=== PATIENT | female | born 1970 | race Caucasian/White ===

== ENCOUNTER → 2016-04-30 | Outpatient (CLI) | payer OTHER | LOC: FIMAGING 15:17 | DX: Z12.31 Encounter for screening mammogram for malignant neoplasm of breast (principal) | CPT/HCPCS: G0202 ==

== ENCOUNTER 2016-05-31 12:09 | Emergency (ER) | payer OTHER ==
[2016-05-31 12:17] VITALS: PULSE 68; RESP 18; TEMP 97.5; O2SAT 98
[2016-05-31 12:20] VITALS: BP 95/62
--- NOTE | 2016-05-31 12:25 | EDPHY ---
H & P Stated Complaint: R ankle pain --misssed step--no other injuries Time Seen by Provider: 05/31/16 12:25 HPI/ROS: CHIEF COMPLAINT: right ankle pain HISTORY OF PRESENT ILLNESS: 45-year-old female arrives via private vehicle complaining of acute right ankle pain after she missed a step and rolled her foot this morning. Unable to bear weight. Complaining of pain to the midfoot and lateral ankle. PRIMARY CARE PROVIDER: REVIEW OF SYSTEMS: A ten point review of systems was performed and is negative with the exception of the items mentioned in the HPI PHYSICAL EXAM (Prior to examination, patient consented to physical exam, hands were washed and my usual and customary physical exam procedures followed) 1) GENERAL: Well-developed, well-nourished, alert and oriented. Appears to be in no acute distress. 2) HEAD: Normocephalic 3) HEENT: Pupils equal, round, reactive to light bilaterally. 4) LUNGS: Breathing comfortably. 5) MUSCULOSKELETAL: Tender to palpation dorsal midfoot and medial and lateral malleolus. Soft tissue swelling noted at midfoot. proximal tibia and fibula nontender .5th MT nontender negative Dominguez test, compartments soft 6) SKIN: intact 7) VASCULAR: DP,PT pulses and cap refill present and brisk DIFFERENTIAL DIAGNOSIS: in no particular order including but not limited to fracture, sprain, compartment syndrome Procedure: Crutches indications for crutch use discussed with patient. Patient fitted for crutches by ER staff. Observed ambulating with crutches. I think the patient has the capacity to safely use crutches. Usual and customary crutch walking precautions provided Procedure: Splint A [place] boot splint was applied by ER hemodialysis lab technician. After application of the splint I returned and re-examined the patient. The splint was adequately immobilizing the joint and distal to the splint the patient's circulation and sensation were intact. Patient shows no signs of compartment syndrome. Was given orthopedic precautions. - Personal History LMP (Females 10-55): 15-21 Days Ago Current Tetanus/Diphtheria Vaccine: Unsure Current Tetanus Diphtheria and Acellular Pertussis (TDAP): Unsure - Medical/Surgical History Hx Asthma: No Hx Chronic Respiratory Disease: No Hx Diabetes: No Hx Cardiac Disease: No Hx Renal Disease: No Hx Cirrhosis: No Hx Alcoholism: No Hx HIV/AIDS: No Hx Splenectomy or Spleen Trauma: No Other PMH: anxiety, T8 compression fx,Right shoulder, x2, neck-" fucked up", 2010- perforated esophagus with EGD in [facility], depression- Clau [place] - [facility] Depression [place]- last seen 2 weeks ago, states she was given meds for schizophrenia/ bipolar, seen for last 5 years. Tramadol "doubled up on it" taken bought in [place]. Menopausal with hot flashes - Social History Smoking Status: Current some day smoker Constitutional: Initial Vital Signs Temperature (C) 36.4 C 05/31/16 12:15 Heart Rate 68 05/31/16 12:15 Respiratory Rate 18 05/31/16 12:15 Blood Pressure 95/62 L 05/31/16 12:15 O2 Sat (%) 98 05/31/16 12:15 O2 Delivery Mode Room Air Allergies/Adverse Reactions: No Known Allergies Allergy (Verified 04/04/13 11:31) Home Medications: Medication Instructions Recorded LORazepam [Ativan (*)] 0.5 mg PO BID #14 tab 05/25/14 QUEtiapine FUMARATE [Seroquel 300 mg PO HS #30 tab 05/25/14 300mg (*)] hydrOXYzine HCL [Vistaril 50MG 50 mg PO Q4 PRN #30 tab 05/25/14 (RX)] oxyCODONE/APAP 5/325 [Percocet 1 tab PO Q6 #7 tab 05/31/16 5/325] Medical Decision Making - Diagnostics Imaging: Imaging Impressions Ankle X-Ray 05/31/16 12:20 Impression: Dorsal navicular and lateral calcaneal cortical fractures.. Images reviewed by myself - Data Points Medications Given: Discontinued Medications Oxycodone/Acetaminophen (Percocet 5/325) 1 tab PO EDNOW ONE Stop: 05/31/16 12:36 Last Admin: 05/31/16 12:40 Dose: Not Given Departure - Departure Disposition: Home, Routine, Self-Care Clinical Impression: Ankle fracture, right Qualifiers: Encounter type: initial encounter Fracture type: closed Qualified Code(s): S82.891A - Other fracture of right lower leg, initial encounter for closed fracture Condition: Good Instructions: Ankle Fracture (ED) Additional Instructions: Return to the ER immediately if you experience discoloration, have worsening pain, numbness, tingling, or any other symptoms that concern you. If you received x-rays in the emergency department today, be advised, that ligamentous , tendon, muscular, and other non-bony injury cannot be fully ruled out. Try to keep your affected extremity elevated above the level of your chest, and keep cold packs on the affected area, for the next 48 hours. Referrals: Tavo Murillo MD [Medical Doctor] - 2-3 days without fail (Dr. Tavo Murillo is an orthopedic surgeon) Prescriptions: oxyCODONE/APAP 5/325 [Percocet 5/325] 1 tab PO Q6 #7 tab
[2016-05-31] MEDS ORDERED: OXYCODONE/APAP 5/325 TAB PO ONE ×2 (12:32→12:35)
== END 2016-05-31 13:08 | disposition home or self-care (01) ==
DX: S82.891A Other fracture of right lower leg, initial encounter for closed fracture (principal); F17.200 Nicotine dependence, unspecified, uncomplicated; X58.XXXA Exposure to other specified factors, initial encounter
CPT/HCPCS: L4386

== ENCOUNTER 2016-12-17 22:28 | Emergency (ER) | payer SELFPAY ==
[2016-12-17 22:40] VITALS: TEMP 97.9
--- NOTE | 2016-12-17 22:55 | EDPHY ---
H & P Stated Complaint: ANXIETY/ DEPRESSION. STATES TOOK 60 PILLS OF XANAX. DENIES SI Source: Patient - Personal History LMP (Females 10-55): Over 28 Days Ago Current Tetanus/Diphtheria Vaccine: Unsure Current Tetanus Diphtheria and Acellular Pertussis (TDAP): Unsure - Medical/Surgical History Hx Asthma: No Hx Chronic Respiratory Disease: No Hx Diabetes: No Hx Cardiac Disease: No Hx Renal Disease: No Hx Cirrhosis: No Hx Alcoholism: No Hx HIV/AIDS: No Hx Splenectomy or Spleen Trauma: No Other PMH: anxiety, T8 compression fx,Right shoulder, x2, neck-" fucked up", 2010- perforated esophagus with EGD in [facility], depression- Cl[place] - [facility] Depression [place]- last seen 2 weeks ago, states she was given meds for schizophrenia/ bipolar, seen for last 5 years. Tramadol "doubled up on it" taken bought in [place]. Menopausal with hot flashes - Social History Smoking Status: Current some day smoker Time Seen by Provider: 12/17/16 22:53 HPI/ROS: HPI: This is a 46-year-old female who presents with Chief Complaint: ANXIETY/ DEPRESSION. STATES TOOK 60 PILLS OF XANAX. DENIES SI Location: Body Quality: Xanax ingestion Duration: 2100 Signs and Symptoms: No shortness of breath, no chest pain, no apnea, + slurred speech, + ataxia Timing: Rapid onset Severity: Moderate Context: Patient presents today accompanied by her close friend that she called her around 900 p.m. in told her that she took 60 pills of Xanax as she had terrible foot pain and could not take it any more. Patient has a history of anxiety and has a prescription for Xanax 1 mg tablets, last filled on 2016, dispense number 60. Patient has no pills left in her prescription bottle. Upon arrival she told the triage nurse she took 60 pills, she then told the RN she took 20 pills and she told me that she only took 4 pills. She went to dinner this evening with her friends after work, behaving appropriately and normally, had 1-2 vodka sodas. Patient has strong support system with 2 daughters. History of depression/anxiety. She denies suicidal ideation/ homicidal ideation/hallucinations/paranoia. 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 Patient keeps complaining about her right foot pain. History of injury several months ago. Denies any new recent injury. Patient keeps stating that she took her Xanax pills because her foot hurts so bad she did not want to kill herself. Modifying Factors: None Comment: ROS: Limited due to intoxication Constitutional: No fever, no chills, no weight loss Eyes: No blurred vision Respiratory: No shortness of breath, no cough Cardiovascular: No chest pain Gastrointestinal: No nausea, no vomiting, no diarrhea Genitourinary: No dysuria Extremities: No myalgias Neurologic: No weakness, no numbness Skin: No rashes Hematologic: No bruising, no bleeding MEDICAL/SURGICAL/SOCIAL HISTORY: Medical/Surgical history: anxiety, T8 compression fx,Right shoulder, x2, neck-"fucked up", 2010- perforated esophagus with EGD in [facility], depression- [place]- [facility] Depression [place]- last seen 2 weeks ago, states she was given medications for schizophrenia/ bipolar, seen for last 5 years. Tramadol "doubled up on it" taken bought in [place]. Menopausal with hot flashes. Social history: Employed CONSTITUTIONAL: Intoxicated middle-aged white female, interactive and talkative , awake and alert, no obvious distress HEENT: Atraumatic and normocephalic, PERRL, EOMI. Tympanic membranes clear. Oropharynx clear, no exudate and moist pink mucosa. Airway patent. No lymphadenopathy. No meningismus. Cardiovascular: Normal S1/S2, regular rate, regular rhythm, without murmur rub or gallop. PULMONARY/CHEST: Symmetrical and nontender. Clear to auscultation bilaterally. Good air movement. No accessory muscle usage. ABDOMEN: Soft, nondistended, nontender, no rebound, no guarding, no peritoneal signs, no masses or organomegaly. No CVAT. EXTREMITIES: 2/2 pulses, no deformities, no clubbing, no cyanosis or edema. NEUROLOGICAL: no focal neuro deficits. GCS 15. Slurring words. Fine motor deficits noted. PSYCH: Good eye contact, no flight of ideas, organized thought process, good insight and judgment, no auditory and visual command hallucinations, no suicidal ideation with a plan, no homicidal ideation, no paranoia SKIN: Warm and dry, no erythema. no rash. Good capillary refill. (Chandler,Terra) Constitutional: Initial Vital Signs Temperature (C) 36.6 C 12/17/16 22:34 Heart Rate 98 12/17/16 22:34 Respiratory Rate 18 12/17/16 22:34 Blood Pressure 101/69 12/17/16 22:34 O2 Sat (%) 96 12/17/16 22:34 O2 Delivery Mode Room Air Allergies/Adverse Reactions: No Known Allergies Allergy (Verified 04/04/13 11:31) Home Medications: Medication Instructions Recorded LORazepam [Ativan (*)] 0.5 mg PO BID #14 tab 05/25/14 QUEtiapine FUMARATE [Seroquel 300 mg PO HS #30 tab 05/25/14 300mg (*)] hydrOXYzine HCL [Vistaril 50MG 50 mg PO Q4 PRN #30 tab 05/25/14 (RX)] oxyCODONE/APAP 5/325 [Percocet 1 tab PO Q6 #7 tab 05/31/16 5/325] Medical Decision Making - Diagnostics Imaging Results: Imaging Impressions Foot X-Ray 12/17/16 23:27 Impression: 1. Normal right foot series. ED Course/Re-evaluation: Labs, UDS, cardiac monitoring Ingestion occurred around 9:00 p.m. placed on detainer 2300. At this point due to intoxication and patient not being forthcoming with information, will closely monitor and obtain medical clearance. Once alcohol and Xanax effects have wore off, will re-evaluate to determine if patient is suicidal. Right foot x-ray my read shows no acute fracture/dislocation. Placed in walking boot for comfort until seen by Orthopedics for further evaluation. 0012: Reassessed patient, she is still inconsistent in her story. She at 1 point showed time she took 60 mg of Xanax and another point she will tell me 10 or 4 tablets. I agree with the detainer and re-evaluation in several hours once sober to determine if she is truly suicidal. 0015: End of shift. Signed out to Dr. Diallo pending re-evaluation. (Gauri Terrazas) Differential Diagnosis: Altered mental status including but not limited to hypoglycemia, infectious process, electrolyte abnormality, head injury and intoxicants. (Gauri Terrazas) Other Provider: 0005 care assumed by me from ROMMEL guzman pending improve mental status and mental health evaluation. (Gary Diallo) Patient signed out to me at 0700. At 0800, patient has been evaluated by mental health who recommend discharge with resources given to rehab facility. ( Lai Jensen) - Data Points Laboratory Results: Laboratory Results 12/17/16 23:15 12/17/16 23:15 12/17/16 12/17/16 12/17/16 23:15 23:15 23:15 WBC RBC Hgb Hct MCV MCH MCHC RDW Plt Count MPV Neut % (Auto) Lymph % (Auto) Pender % (Auto) Eos % (Auto) Baso % (Auto) Nucleat RBC Rel Count Absolute Neuts (auto) Absolute Lymphs (auto) Absolute Monos (auto) Absolute Eos (auto) Absolute Basos (auto) Absolute Nucleated RBC Immature Gran % Immature Gran # Sodium 145 mEq/L H mEq/L (134-144) Potassium 4.2 mEq/L mEq/L (3.5-5.2) Chloride 105 mEq/L mEq/L (97-110) Carbon Dioxide 27 mEq/l mEq/l (22-31) Anion Gap 13 mEq/L mEq/L (8-16) BUN 10 mg/dL mg/dL (7-23) Creatinine 0.8 mg/dL mg/dL (0.6-1.0) Estimated GFR > 60 Glucose 87 mg/dL mg/dL (70-100) Calcium 9.6 mg/dL mg/dL (8.5-10.4) Beta HCG, Qual NEGATIVE Salicylates < 1.0 mg/dL L mg/dL (2.0-20.0) Urine Opiates Screen NEGATIVE (NEGATIVE) Acetaminophen < 10 mcg/mL L mcg/mL (10-30) Urine Barbiturates NEGATIVE (NEGATIVE) Ur Phencyclidine Scrn NEGATIVE (NEGATIVE) Ur Amphetamine Screen NEGATIVE (NEGATIVE) U Benzodiazepines Scrn NON-NEGATIVE H (NEGATIVE) Urine Cocaine Screen NEGATIVE (NEGATIVE) U Marijuana (THC) Screen NEGATIVE (NEGATIVE) Ethyl Alcohol 119 mg/dL H mg/dL (0-10) 12/17/16 23:15 WBC 5.94 10^3/uL 10^3/uL (3.80-9.50) RBC 4.25 10^6/uL 10^6/uL (4.18-5.33) Hgb 14.1 g/dL g/dL (12.6-16.3) Hct 40.6 % % (38.0-47.0) MCV 95.5 fL fL (81.5-99.8) MCH 33.2 pg pg (27.9-34.1) MCHC 34.7 g/dL g/dL (32.4-36.7) RDW 12.4 % % (11.5-15.2) Plt Count 225 10^3/uL 10^3/uL (150-400) MPV 10.3 fL fL (8.7-11.7) Neut % (Auto) 36.8 % L % (39.3-74.2) Lymph % (Auto) 48.3 % H % (15.0-45.0) Pender % (Auto) 7.7 % % (4.5-13.0) Eos % (Auto) 6.7 % % (0.6-7.6) Baso % (Auto) 0.3 % % (0.3-1.7) Nucleat RBC Rel Count 0.0 % % (0.0-0.2) Absolute Neuts (auto) 2.18 10^3/uL 10^3/uL (1.70-6.50) Absolute Lymphs (auto) 2.87 10^3/uL 10^3/uL (1.00-3.00) Absolute Monos (auto) 0.46 10^3/uL 10^3/uL (0.30-0.80) Absolute Eos (auto) 0.40 10^3/uL 10^3/uL (0.03-0.40) Absolute Basos (auto) 0.02 10^3/uL 10^3/uL (0.02-0.10) Absolute Nucleated RBC 0.00 10^3/uL 10^3/uL (0-0.01) Immature Gran % 0.2 % % (0.0-1.1) Immature Gran # 0.01 10^3/uL 10^3/uL (0.00-0.10) Sodium Potassium Chloride Carbon Dioxide Anion Gap BUN Creatinine Estimated GFR Glucose Calcium Beta HCG, Qual Salicylates Urine Opiates Screen Acetaminophen Urine Barbiturates Ur Phencyclidine Scrn Ur Amphetamine Screen U Benzodiazepines Scrn Urine Cocaine Screen U Marijuana (THC) Screen Ethyl Alcohol Departure - Departure Disposition: Home, Routine, Self-Care Clinical Impression: Benzodiazepine overdose of undetermined intent Qualifiers: Encounter type: initial encounter Qualified Code(s): T42.4X4A - Poisoning by benzodiazepines, undetermined, initial encounter Condition: Good Instructions: Benzodiazepine Abuse (ED) Additional Instructions: Return to the ED for thoughts of self-harm or other concerns. Please follow-up with rehabilitation facility. Referrals: NONE *PRIMARY CARE P,. [Primary Care Provider] - As per Instructions
[2016-12-17 23:26] LABS: % IMMATURE GRANULYOCYTES 0.2 % (0.0-1.1); ABSOLUTE IMMATURE GRANULOCYTES 0.01 10^3/uL (0.00-0.10); ADD DIFF? NO; ADD MORPH? NO; ADD SCAN? NO; ATYPICAL LYMPHOCYTE FLAG 10 (0-99); FRAGMENT RBC FLAG 0 (0-99); HEMATOCRIT 40.6 % (38.0-47.0); HEMOGLOBIN 14.1 g/dL (12.6-16.3); LEFT SHIFT FLG 0 (0-99); LIPEMIA HEMOLYSIS FLAG 90 (0-99); MEAN CELL HEMOGLOBIN 33.2 pg (27.9-34.1); MEAN CELL HEMOGLOBIN CONCENTR. 34.7 g/dL (32.4-36.7); MEAN CELL VOLUME 95.5 fL (81.5-99.8); MEAN PLATELET VOLUME 10.3 fL (8.7-11.7); PLATELET CLUMPS FLAG 10 (0-99); PLATELET COUNT 225 10^3/uL (150-400); RED BLOOD CELL COUNT 4.25 10^6/uL (4.18-5.33); RED CELL DISTRIBUTION WIDTH 12.4 % (11.5-15.2)
[2016-12-18 00:06] LABS: ANION GAP 13 mEq/L (8-16); CALCIUM 9.6 mg/dL (8.5-10.4); CARBON DIOXIDE 27 mEq/l (22-31); CHLORIDE 105 mEq/L (97-110); CREATININE 0.8 mg/dL (0.6-1.0); ETHANOL SERUM 119 mg/dL (0-10); GLOMERULAR FILTRATION RATE > 60; GLUCOSE 87 mg/dL (70-100); POTASSIUM 4.2 mEq/L (3.5-5.2); SALICYLATE < 1.0 mg/dL (2.0-20.0); SODIUM 145 mEq/L (134-144)
[2016-12-18 07:59] VITALS: BP 100/67; PULSE 69; RESP 17; O2SAT 96
== END 2016-12-18 08:55 | disposition home or self-care (01) ==
DX: T42.4X4A Poisoning by benzodiazepines, undetermined, initial encounter (principal); F17.200 Nicotine dependence, unspecified, uncomplicated
CPT/HCPCS: 80305; G0480

== ENCOUNTER 2016-12-18 15:45 | Emergency (ER) | payer SELFPAY ==
[2016-12-18 15:54] VITALS: BP 97/71; PULSE 70; RESP 16; TEMP 97.3; O2SAT 99
--- NOTE | 2016-12-18 16:07 | EDPHY ---
H & P Time Seen by Provider: 12/18/16 15:59 HPI/ROS: CHIEF COMPLAINT: Left foot pain HISTORY OF PRESENT ILLNESS: 46-year-old female arrives via private vehicle complaining of acute left lateral foot pain after she rolled her foot earlier today at 9:00 a.m.. Able to bear weight albeit with pain. No paresthesia. No fall from height. No paresthesia. No ankle pain. PHYSICAL EXAM (Prior to examination, patient consented to physical exam, hands were washed and my usual and customary physical exam procedures followed) 1) GENERAL: Well-developed, well-nourished, alert and oriented. Appears to be in no acute distress. 2) HEAD: Normocephalic 3) HEENT: Pupils equal, round, reactive to light bilaterally. 4) LUNGS: Breathing comfortably. 5) MUSCULOSKELETAL: proximal tibia and fibula nontender .5th MT nontender negative Dominguez test, compartments soft 6) SKIN: intact, ecchymosis to the midfoot lateral aspect 7) VASCULAR: DP,PT pulses and cap refill present and brisk DIFFERENTIAL DIAGNOSIS: in no particular order including but not limited to fracture, sprain, compartment syndrome Procedure: Splint A postop shoe splint was applied by ER school laboratory technician. After application of the splint I returned and re-examined the patient. The splint was adequately immobilizing the joint and distal to the splint the patient's circulation and sensation were intact. Patient shows no signs of compartment syndrome. Was given orthopedic precautions. Patient has her own pair of crutches at home, recommend she use these, recommend nonweightbearing until cleared by Orthopedics Smoking Status: Current some day smoker Constitutional: Initial Vital Signs Temperature (C) 36.3 C 12/18/16 15:52 Heart Rate 70 12/18/16 15:52 Respiratory Rate 16 12/18/16 15:52 Blood Pressure 97/71 L 12/18/16 15:52 O2 Sat (%) 99 12/18/16 15:52 O2 Delivery Mode Room Air Allergies/Adverse Reactions: No Known Allergies Allergy (Verified 04/04/13 11:31) Home Medications: Medication Instructions Recorded Celexa 10/26/17 Levothyroxine 12/18/16 oxyCODONE/APAP 5/325 [Percocet 1 tab PO Q6 #10 tab 12/18/16 5/325] MDM/Departure - [facility] ED Course/Re-evaluation: Re-evaluation with serial exams, she remains neurovascular intact no evidence of open fracture. She has previously seen Dr. Karlos Garcia and would like to follow up with him. Usual and customary orthopedic precautions instructions provided - Depart Disposition: Home, Routine, Self-Care Clinical Impression: Fracture of fifth metatarsal bone of left foot Qualifiers: Encounter type: initial encounter Fracture type: closed Fracture alignment: displaced Qualified Code(s): S92.352A - Displaced fracture of fifth metatarsal bone, left foot, initial encounter for closed fracture Condition: Good Instructions: Foot Fracture in Adults (ED) Additional Instructions: Return to the ER immediately if you experience discoloration, have worsening pain, numbness, tingling, or any other symptoms that concern you. If you received x-rays in the emergency department today, be advised, that ligamentous , tendon, muscular, and other non-bony injury cannot be fully ruled out. Try to keep your affected extremity elevated above the level of your chest, and keep cold packs on the affected area, for the next 48 hours. Prescriptions: oxyCODONE/APAP 5/325 [Percocet 5/325] 1 tab PO Q6 #10 tab Referrals: Karlos Garcia MD [Medical Doctor] - 2-3 days, call for appt.
== END 2016-12-18 16:32 | disposition home or self-care (01) ==
DX: S92.352A Displaced fracture of fifth metatarsal bone, left foot, initial encounter for closed fracture (principal); F17.200 Nicotine dependence, unspecified, uncomplicated; X50.9XXA Other and unspecified overexertion or strenuous movements or postures, initial encounter
CPT/HCPCS: L3260

== ENCOUNTER 2017-01-05 01:03 | Emergency (ER) | payer SELFPAY ==
--- NOTE | 2017-01-05 01:12 | EDPHY ---
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 Tramadol "doubled up on it" taken bought in [employer]. Menopausal with hot flashes - Social History Smoking Status: Current some day smoker HPI/ROS: HPI CHIEF COMPLAINT: Suicidal ideation. HISTORY OF PRESENT ILLNESS: This patient is a 46-year-old female significant past medical history for depression and anxiety, presents emergency room after she ingested she thinks 50 tabs of 81 mg aspirin at 9:00 p.m. tonight or approximately 4 hours ago. Additionally she states that she drank a bottle of Nyquil. She states she did vomit after this and multiple pill fragments were vomited up. She denies ringing in her ears. She denies abdominal pain nausea vomiting at this time. She did vomit prior to arrival. She states she took this as she is very depressed and upset about going through a divorce with her . Positive for suicidal ideation. Additionally she states she took 2 Xanax that she has previously prescribed as well as alcohol this evening. Denies any other ingestions. She states she took all this at 9:00 p.m.. Past Medical History: Depression, anxiety Past Surgical History: Recent foot fracture. Social History: Denies daily use of alcohol drugs or tobacco. She is an RN. Family History: Noncontributory. ROS REVIEW OF SYSTEMS: A comprehensive 10 point review of systems is otherwise negative aside from elements mentioned in the history of present illness. Exam Constitutional appears well nontoxic, triage nursing summary reviewed, vital signs reviewed, awake/alert. Eyes normal conjunctivae and sclera, EOMI, PERRLA. HENT normal inspection, atraumatic, moist mucus membranes, no epistaxis, neck supple/ no meningismus, no raccoon eyes. Respiratory clear to auscultation bilaterally, normal breath sounds, no respiratory distress, no wheezing. Cardiovascular rate normal, regular rhythm, no murmur, no edema, distal pulses normal. Gastrointestinal soft, non-tender, no rebound, no guarding, normal bowel sounds, no distension, no pulsatile mass. Genitourinary no CVA tenderness. Musculoskeletal no midline vertebral tenderness, full range of motion, no calf swelling, no tenderness of extremities, no meningismus, good pulses, neurovascularly intact. Skin pink, warm, & dry, no rash, skin atraumatic. Neurologic awake, alert and oriented x 3, AAOx3, moves all 4 extremities equally, motor intact, sensory intact, CN II-XII intact, normal cerebellar, normal vision, normal speech. Psychiatric normal mood/affect. Heme/Lymph/Immune no lymphadenopathy. Differential Diagnosis: Includes but is not limited to in a particular order, salicylate overdose, CP medicine overdose, suicidal ideation, depression, anxiety. Medical Decision Making: Plan for this patient full cardiac cath technologist obtain EKG , IV establishment IV fluid bolus, check aspirin level, Tylenol level, consult poison control, IV fluids, a drug screen. M1 hold. Re-evaluation: 0138: Poison Control consult. Case [id number]. EKG interpretation by me on record in [facility] system. Impression time of EKG 1:37 a.m.. This is sinus rhythm rate of 60 form. Intervals are appropriate. Nonspecific T-wave abnormality V1 V2. Otherwise unremarkable EKG. 0213: Patient's Tylenol level 69 this is a 4 hour level. Will touch base with poison Control however this is blow the 150 level most likely will not treated. LFTs are negative. Salicylate level 13. Repeat Tylenol level has trended down. Salicylate level went from 13 to 15. Will repeat again in 2 hours. Her levels not both 30. She did not have any symptoms at this time. 0610: Touch base with poison Control as this patient's list level is now 17. It is not above 30 and no indication for bicarb at this time. However will plan on repeating salicylate is well over the next [address] it stranding. 0612AM: Poison Control recommends a 4 hour salicylate level. And have 2 salicylate levels that are trending down due to the clumping nature of salicylate. 0641AM: Signed over to Dr. Ruchi Mcgrath at 7am shift change. Follow up Repeat Salicylate. Need to trend down x 2 to be cleared. (Steven Reilly) Constitutional: Initial Vital Signs Temperature (C) 37.1 C 01/05/17 01:07 Heart Rate 67 01/05/17 01:07 Respiratory Rate 16 01/05/17 01:07 Blood Pressure 122/95 H 01/05/17 01:07 O2 Sat (%) 96 01/05/17 01:07 O2 Delivery Mode Room Air Allergies/Adverse Reactions: No Known Allergies Allergy (Verified 04/04/13 11:31) Home Medications: Medication Instructions Recorded Celexa 12/18/16 Levothyroxine 12/18/16 Xanax 01/05/17 traMADol 01/05/17 Medical Decision Making Other Provider: I assumed care of this patient from Dr. Reilly at 7:00 a.m.. Per poison Control, she is scheduled to have 2 more salicylate levels done. If these are declining she will be considered medically cleared. Salicylate level at 9:30 a.m. and 11:30 a.m. or both declining. Previous levels. She has no new complaints to me. She has requested Xanax from the nurse. She states that she has a prescription for Xanax and is allowed to take up to 3 daily but usually takes only 1. Patient is concerned about the possibility of benzodiazepine withdrawal if she does not receive Xanax. She was given a dose of Xanax 0.5 mg. She has been accepted for inpatient psychiatric treatment. I have signed the EMTALA form and transfer is being arranged. (Ruchi Mcgrath) - Data Points Laboratory Results: Laboratory Results 01/05/17 01:30 01/05/17 01:30 01/05/17 01/05/17 01/05/17 11:24 09:30 09:30 Salicylates 13.6 mg/dL mg/dL 15.4 mg/dL mg/dL (2.0-20.0) (2.0-20.0) Acetaminophen 15 mcg/mL mcg/mL (10-30) 01/05/17 01/05/17 05:30 03:30 Salicylates 17.8 mg/dL mg/dL 15.0 mg/dL mg/dL (2.0-20.0) (2.0-20.0) Acetaminophen 48 mcg/mL H mcg/mL (10-30) Medications Given: Discontinued Medications Alprazolam (Xanax) 0.5 mg PO EDNOW ONE Stop: 01/05/17 09:57 Last Admin: 01/05/17 09:58 Dose: 0.5 mg Sodium Chloride (Ns) 1,000 mls @ 0 mls/hr IV ONCE ONE PRN Reason: Wide Open Stop: 01/05/17 01:20 Last Admin: 01/05/17 01:30 Dose: 1,000 mls Departure - Departure Disposition: Other Psych, Not [facility] Clinical Impression: Suicidal ideation Depression Qualifiers: Depression Type: major depressive disorder Major depression recurrence: recurrent Active/Remission status: currently active Major depression episode severity: severe Psychotic features: without psychotic features Qualified Code(s ): F33.2 - Major depressive disorder, recurrent severe without psychotic features Condition: Fair Referrals: NONE *PRIMARY CARE P,. [Primary Care Provider] - As per Instructions
[2017-01-05] MEDS ORDERED: NS 1,000 ML IV ONE (01:19)
--- NOTE | 2017-01-05 01:39 | CPEKG ---
Heart Rate: 64 RR Interval: 938 P-R Interval: 164 QRSD Interval: 90 QT Interval: 464 QTC Interval: 479 P Lucile: 57 QRS Lucile: 47 T Wave Lucile: 35 EKG Severity - BORDERLINE ECG - EKG Impression: SINUS RHYTHM EKG Impression: LOW VOLTAGE THROUGHOUT EKG Impression: BORDERLINE R WAVE PROGRESSION, ANTERIOR LEADS Electronically Signed By: Kym Alcaraz 05-Jan-2017 23:14:15
[2017-01-05 01:44] LABS: % IMMATURE GRANULYOCYTES 0.2 % (0.0-1.1); ABSOLUTE IMMATURE GRANULOCYTES 0.01 10^3/uL (0.00-0.10); ADD DIFF? NO; ADD MORPH? NO; ADD SCAN? NO; ATYPICAL LYMPHOCYTE FLAG 0 (0-99); FRAGMENT RBC FLAG 0 (0-99); HEMOGLOBIN 14.2 g/dL (12.6-16.3); LEFT SHIFT FLG 0 (0-99); LIPEMIA HEMOLYSIS FLAG 90 (0-99); MEAN CELL HEMOGLOBIN 32.9 pg (27.9-34.1); MEAN CELL HEMOGLOBIN CONCENTR. 36.4 g/dL (32.4-36.7); MEAN CELL VOLUME 90.5 fL (81.5-99.8); MEAN PLATELET VOLUME 10.2 fL (8.7-11.7); PLATELET CLUMPS FLAG 40 (0-99); PLATELET COUNT 273 10^3/uL (150-400); RED BLOOD CELL COUNT 4.31 10^6/uL (4.18-5.33); RED CELL DISTRIBUTION WIDTH 12.2 % (11.5-15.2)
[2017-01-05 01:57] LABS: ALANINE AMINOTRANSFERASE 30 IU/L (9-52); ALBUMIN 4.2 g/dL (3.5-5.0); ALKALINE PHOSPHATASE 69 IU/L (38-126); ANION GAP 18 mEq/L (8-16); ASPARTATE AMINOTRANSFERASE 24 IU/L (14-46); BILIRUBIN,TOTAL 0.4 mg/dL (0.1-1.4); BILIRUBIN-CONJUGATED 0.1 mg/dL (0.0-0.5); BILIRUBIN-UNCONJUGATED 0.3 mg/dL (0.0-1.1); CALCIUM 9.5 mg/dL (8.5-10.4); CARBON DIOXIDE 22 mEq/l (22-31); CHLORIDE 106 mEq/L (97-110); CREATININE 0.7 mg/dL (0.6-1.0); ETHANOL SERUM 20 mg/dL (0-10); GLOMERULAR FILTRATION RATE > 60; GLUCOSE 79 mg/dL (70-100); POTASSIUM 3.7 mEq/L (3.5-5.2); SALICYLATE 13.9 mg/dL (2.0-20.0); SODIUM 146 mEq/L (134-144); TOTAL PROTEIN 6.4 g/dL (6.3-8.2)
[2017-01-05 05:55] LABS: SALICYLATE 17.8 mg/dL (2.0-20.0)
[2017-01-05 07:30] VITALS: RESP 16
[2017-01-05] MEDS ORDERED: ALPRAZolam 0.25 MG TAB PO ONE (09:56)
[2017-01-05 10:13] LABS: SALICYLATE 15.4 mg/dL (2.0-20.0)
[2017-01-05 11:51] LABS: SALICYLATE 13.6 mg/dL (2.0-20.0)
[2017-01-05 15:09] VITALS: BP 123/89; PULSE 60; TEMP 97.9; O2SAT 100
== END 2017-01-05 17:02 ==
DX: F33.2 Major depressive disorder, recurrent severe without psychotic features (principal); F17.200 Nicotine dependence, unspecified, uncomplicated; R11.10 Vomiting, unspecified
CPT/HCPCS: 80305; G0480

== ENCOUNTER 2017-07-13 22:14 | Emergency (ER) | payer SELFPAY ==
[2017-07-13 22:19] VITALS: BP 102/78
[2017-07-13] MEDS ORDERED: TDAP ADULT 0.5 ML INJ (BOOSTRIX) IM ONE (22:26)
[2017-07-13] MEDS ORDERED: LET GEL TOPICAL 1 EA SYR TP ONE (22:27)
--- NOTE | 2017-07-13 22:30 | EDPHY ---
H & P Time Seen by Provider: 07/13/17 22:22 HPI/ROS: CHIEF COMPLAINT: Left shoulder pain left upper extremity abrasion HISTORY OF PRESENT ILLNESS: 47-year-old female with out-of-date tetanus was helping a friend move this evening, tripped on object in the dark sustaining abrasion to her left volar forearm and also to her left anterior shoulder. She has a baseline of known rotator cuff tear and biceps tear, followed by Dr. Karlos Garcia. She is complaining of pain to her left shoulder. PHYSICAL EXAM (Prior to examination, patient consented to physical exam, hands were washed and my usual and customary physical exam procedures followed) 1) GENERAL: Well-developed, well-nourished, alert and oriented. Appears to be in no acute distress. 2) HEAD: Normocephalic 3) HEENT: sclera anicteric 4) LUNGS: Breathing comfortably. 5) SKIN: Left volar forearm abrasion with no signs of infection is soft compartments. No underlying osseous discomfort to the left elbow, full pain- free range of motion left elbow. Abrasion to the left anterior shoulder with reproducible pain with range of motion to the left shoulder. No signs of infection to these abrasions. 6) MUSCULOSKELETAL: Soft compartments 7) NEUROLOGIC: Distal neurovascular status is normal. Brisk pulses and capillary refill Smoking Status: Former smoker Constitutional: Initial Vital Signs Temperature (C) 36.8 C 07/13/17 22:15 Heart Rate 98 07/13/17 22:15 Respiratory Rate 16 07/13/17 22:15 Blood Pressure 102/78 07/13/17 22:15 O2 Sat (%) 95 07/13/17 22:15 O2 Delivery Mode Room Air Allergies/Adverse Reactions: No Known Allergies Allergy (Verified 07/13/17 22:19) Home Medications: Medication Instructions Recorded Celexa 12/18/16 Abilify 07/13/17 MDM/Departure - MDM Imaging Results: Imaging Impressions Shoulder X-Ray 07/13/17 22:27 Impression: No definite fracture of the left shoulder. Images reviewed myself Medications Given: Discontinued Medications Hydrocodone Bitart/Acetaminophen ([place] 5/325mg Prepack#6) 1 btl TAKEHOME EDNOW ONE Stop: 07/13/17 22:58 Last Admin: 07/13/17 22:57 Dose: 1 btl Diphtheria/Tetanus/Acell Pertussis (Boostrix) 0.5 ml IM .ONCE ONE Stop: 07/13/17 22:27 Last Admin: 07/13/17 22:41 Dose: 0.5 ml Tetracaine/Epinephrine/Lidocaine (Let Gel Topical) 1 ea TP EDNOW ONE Stop: 07/13/17 22:28 Last Admin: 07/13/17 22:41 Dose: 1 ea ED Course/Re-evaluation: Care of patient under supervision of secondary supervising physician Dr Diallo . Patient's wounds have been anesthetized with topical anesthetic in cleansed. I reviewed the patient's x-ray showing no definitive acute osseous abnormality. She has been informed of the limitations of x-ray. She has been informed that non osseous injury not ruled out. Recommend follow up with Dr. Karlos Andrade. Discharged home with analgesia, sling. She feels comfortable being discharged. Usual and customary wound and orthopedic precautions instructions provided. - Depart Disposition: Home, Routine, Self-Care Clinical Impression: Left shoulder pain Qualifiers: Chronicity: acute Qualified Code(s): M25.512 - Pain in left shoulder Shoulder abrasion Qualifiers: Encounter type: initial encounter Laterality: left Qualified Code(s): S40.212A - Abrasion of left shoulder, initial encounter Forearm abrasion Qualifiers: Encounter type: initial encounter Laterality: left Qualified Code(s): S50.812A - Abrasion of left forearm, initial encounter Condition: Good Instructions: Hydrocodone/Acetaminophen (By mouth), Shoulder Sprain (ED) Additional Instructions: Return to the ER immediately if you experience discoloration, have worsening pain, numbness, tingling, or any other symptoms that concern you. If you received x-rays in the emergency department today, be advised, that ligamentous , tendon, muscular, and other non-bony injury cannot be fully ruled out. Try to keep your affected extremity elevated above the level of your chest, and keep cold packs on the affected area, for the next 48 hours. Referrals: Karlos Garcia MD [Medical Doctor] - As per Instructions
[2017-07-13] MEDS ORDERED: HYDROCOD/APAP 5/325 PREPACK#6 BTL TAKEHOME ONE ×2 (22:55→22:57)
== END 2017-07-13 23:06 | disposition home or self-care (01) ==
DX: S40.212A Abrasion of left shoulder, initial encounter (principal); S50.812A Abrasion of left forearm, initial encounter; Z23 Encounter for immunization; Z87.891 Personal history of nicotine dependence; W18.49XA Other slipping, tripping and stumbling without falling, initial encounter; Y99.8 Other external cause status
CPT/HCPCS: A4565

== ENCOUNTER → 2018-04-23 | Outpatient (CLI) | payer OTHER | LOC: FIMAGING 11:36 ==